=== PATIENT | female | born 1985 | race Caucasian/White ===

== ENCOUNTER 2024-10-06 12:22 | Day surgery (SDC) | payer OTHER ==
[2024-09-29 10:23] VITALS: BMI 21.6
[2024-10-06 14:02] VITALS: RESP 18; TEMP 98
[2024-10-06 14:17] VITALS: BP 110/70; PULSE 69
== END 2024-10-06 14:20 | disposition home or self-care (01) ==
LOC: FASU-ENDO 12:22
PROVIDERS: ATTEND Internal Medicine Gastroenterology
PROC: 0DB68ZX Excision of Stomach, Via Natural or Artificial Opening Endoscopic, Diagnostic (ICD-10-PCS; principal; 2024-10-06 13:34)
DX: Z13.810 Encounter for screening for upper gastrointestinal disorder (principal); K29.50 Unspecified chronic gastritis without bleeding; R10.13 Epigastric pain
CPT/HCPCS: 81025; 88305-TC; 88342-TC